=== PATIENT | male | born 1955 | race Caucasian/White ===

== ENCOUNTER 2021-08-06 07:01 | Outpatient (CLI) | payer MEDICARE ==
[2021-08-06] MEDS ORDERED: Iopamidol 370 76% 100 ML VIAL ONE (13:20)
== END 2021-08-06 07:02 | disposition home or self-care (01) ==
LOC: CT 07:01
PROVIDERS: ATTEND Internal Medicine Gastroenterology
DX: R10.13 Epigastric pain (principal); R10.33 Periumbilical pain; K83.8 Other specified diseases of biliary tract; K40.90 Unilateral inguinal hernia, without obstruction or gangrene, not specified as recurrent
CPT/HCPCS: 74177; 82565

== ENCOUNTER 2021-08-09 09:36 | Day surgery (SDC) | payer MEDICARE ==
[2021-08-08 13:57] VITALS: BMI 24.7
[2021-08-09 11:12] LABS: SARS-CoV-2 NAA Rapid Test Not Detected (NotDetected)
[2021-08-09] MEDS ORDERED: Levofloxacin 500 mg/D5W 100 ml Premix Bag ONE (11:16)
[2021-08-09] MEDS ORDERED: Iothalamate Meglumine 60% 50 ML VIAL FS ONE (12:42)
[2021-08-09] MEDS ORDERED: Indomethacin 50 MG SUPP ONE (12:42)
[2021-08-09] MEDS ORDERED: Fentanyl 100 MCG/2 ML VIAL ONE (12:54)
[2021-08-09] MEDS ORDERED: Dexamethasone 20 MG/5 ML VIAL ONE (13:10)
[2021-08-09] MEDS ORDERED: PROPOFOL 200 MG/20 ML VIAL ONE (13:10)
[2021-08-09] MEDS ORDERED: Rocuronium Bromide 10 MG/ML (10ML VIAL) ONE (13:10)
[2021-08-09] MEDS ORDERED: Glycopyrrolate 0.2 MG/ML 5 ML SYRINGE ONE (13:10)
[2021-08-09] MEDS ORDERED: Ondansetron PF 4 MG/2 ML Vial ONE (13:10)
[2021-08-09] MEDS ORDERED: Lidocaine 1% PF 5 ML VIAL ONE (13:10)
== END 2021-08-09 17:10 | disposition home or self-care (01) ==
LOC: SDC 09:36
PROVIDERS: ATTEND Internal Medicine Gastroenterology
PROC: 0FC98ZZ Extirpation of Matter from Common Bile Duct, Via Natural or Artificial Opening Endoscopic (ICD-10-PCS; principal; 2021-08-09)
DX: K80.50 Calculus of bile duct without cholangitis or cholecystitis without obstruction (principal); K22.5 Diverticulum of esophagus, acquired; K21.9 Gastro-esophageal reflux disease without esophagitis; M10.9 Gout, unspecified; I10 Essential (primary) hypertension; F17.290 Nicotine dependence, other tobacco product, uncomplicated; Z20.822 Contact with and (suspected) exposure to COVID-19; Z79.899 Other long term (current) drug therapy; Z88.0 Allergy status to penicillin
CPT/HCPCS: 43262; 43264; 74330; Q9961; U0002; J1100; J1956; J2405; J2704; J3010

== ENCOUNTER 2022-01-03 14:09 | Outpatient (CLI) | payer MEDICARE ==
[2022-01-03 15:30] LABS: #Basophils 0.1 10x3/uL (0.0-0.2); #Eosinphils 0.2 10x3/uL (0.0-0.5); #Monocytes 0.6 10x3/uL (0.0-1.1); #Neutrophils 4.6 10x3/uL (1.5-8.4); %Basophils 0.8 % (0.0-2.0); %Lymphocytes 23.5 % (18.0-47.0); %Monocytes 8.4 % (0.0-10.0); %Neutrophils 63.9 % (40.0-75.0); Hemoglobin 14.4 g/dL (13.5-17.5); Mean Corpuscular Hemoglobin 33.1 pg (27.0-33.0); Mean Corpuscular Volume 94.7 fl (81.2-95.1); Mean Platelet Volume 9.6 fl (7.4-10.4); Platelet Count 217 10x3/uL (150-450); Red Blood Cell (RBC) Count 4.35 10x6/uL (4.32-5.72); White Blood Cell (WBC) Count 7.2 10x3/uL (3.5-10.5)
[2022-01-03 16:00] LABS: ALT (SGPT) 20 U/L (8-55); AST (SGOT) 19 U/L (5-34); Albumin 4.5 g/dL (3.4-4.8); Alkaline Phosphatase 48 U/L (40-110); Anion Gap 17 mmol/L (10-20); BUN (Urea Nitrogen) 33 mg/dL (8.4-25.7); Bilirubin, Direct 0.4 mg/dL (0.1-0.3); Calc. Creatinine Clearance 0 mL/min (70-130); Calcium 9.5 mg/dL (7.8-10.44); Carbon Dioxide 16 mmol/L (23-31); Chloride 110 mmol/L (98-107); Globulin 2.6 g/dL (2.4-3.5); Glucose 97 mg/dL (80-115); Potassium 4.1 mmol/L (3.5-5.1); Protein, Total 7.1 g/dL (5.8-8.1); Sodium 139 mmol/L (136-145)
[2022-01-04 11:56] LABS: SARS-CoV-2 PCR by NAA Not Detected (NotDetected)
== END 2022-01-03 14:10 | disposition home or self-care (01) ==
LOC: LABBT 14:09
PROVIDERS: ATTEND Surgery
DX: Z01.818 Encounter for other preprocedural examination (principal); K80.50 Calculus of bile duct without cholangitis or cholecystitis without obstruction; K40.90 Unilateral inguinal hernia, without obstruction or gangrene, not specified as recurrent; Z20.822 Contact with and (suspected) exposure to COVID-19
CPT/HCPCS: 80053; 80076; 85025; 93005; U0003; U0005; 93010

== ENCOUNTER 2022-01-07 05:42 | Day surgery (SDC) | payer MEDICARE ==
[2022-01-03 11:37] VITALS: BMI 25.1
[2022-01-07] MEDS ORDERED: fentaNYL Citrate/PF 100 MCG/2 ML SYRINGE ONE (06:30)
[2022-01-07] MEDS ORDERED: EPINEPHrine 1 MG/ML AMP ONE (06:40)
[2022-01-07] MEDS ORDERED: Bupivacaine PF 0.5% 30 ML VIAL ONE (06:40)
[2022-01-07] MEDS ORDERED: ceFAZolin (BATCH) 2 GM/100 ML BAG ONE (07:20)
[2022-01-07] MEDS ORDERED: Glycopyrrolate 0.2 MG/ML 5 ML SYRINGE ONE (07:36)
[2022-01-07] MEDS ORDERED: Lidocaine 1% PF 5 ML VIAL ONE (07:36)
[2022-01-07] MEDS ORDERED: Dexamethasone 20 MG/5 ML VIAL ONE (07:36)
[2022-01-07] MEDS ORDERED: ePHEDrine 50 MG/ML VIAL ONE (07:36)
[2022-01-07] MEDS ORDERED: Ondansetron PF 4 MG/2 ML Vial ONE (07:36)
[2022-01-07] MEDS ORDERED: Rocuronium Bromide 10 MG/ML (10ML VIAL) ONE (07:36)
[2022-01-07] MEDS ORDERED: PROPOFOL 200 MG/20 ML VIAL ONE (07:36)
[2022-01-07] MEDS ORDERED: Lidocaine 2% Jelly 5 ML TUBE ONE (09:03)
[2022-01-07] MEDS ORDERED: Promethazine HCl 25 MG/ML VIAL ONE (09:37)
[2022-01-07] MEDS ORDERED: Fentanyl 100 MCG/2 ML VIAL ONE (09:53)
== END 2022-01-07 14:18 | disposition home or self-care (01) ==
LOC: SDC 05:42
PROVIDERS: ATTEND Surgery
PROC: 0FT44ZZ Resection of Gallbladder, Percutaneous Endoscopic Approach (ICD-10-PCS; principal; 2022-01-07)
PROC: 0YU50JZ Supplement Right Inguinal Region with Synthetic Substitute, Open Approach (ICD-10-PCS; 2022-01-07)
DX: K80.44 Calculus of bile duct with chronic cholecystitis without obstruction (principal); K40.91 Unilateral inguinal hernia, without obstruction or gangrene, recurrent; K82.8 Other specified diseases of gallbladder; I10 Essential (primary) hypertension; Z87.891 Personal history of nicotine dependence; Z79.899 Other long term (current) drug therapy; Z88.0 Allergy status to penicillin
CPT/HCPCS: 88304; C1713; C1781; J0171; J0690; J1100; J2405; J2550; J2704; J3010; J3490; S0020